=== PATIENT | female | born 1965 | race African-American/Black ===

== ENCOUNTER 2024-02-02 11:30 | Emergency (ER) | payer OTHER ==
[2024-02-02 11:49] VITALS: BP 145/82; PULSE 67; RESP 18; TEMP 98; BMI 36.0
[2024-02-02] MEDS ORDERED: KETOROLAC TROMETHAMINE 30 MG/1 ML VIAL ONE (12:57)
[2024-02-02] MEDS ORDERED: ACETAMINOPHEN 500 MG TABLET (FP) ONE (12:57)
[2024-02-02] MEDS ORDERED: LIDOCAINE 4% PATCH TP ONE (12:57)
[2024-02-02] MEDS: LIDOCAINE 4% PATCH TP ONE (13:01)
[2024-02-02] MEDS: ACETAMINOPHEN 500 MG TABLET (FP) PO ONE (13:02)
[2024-02-02] MEDS: KETOROLAC TROMETHAMINE 30 MG/1 ML VIAL IM ONE (13:02)
[2024-02-02] MEDS ORDERED: LIDOCAINE PATCH REMOVAL MC ONE (22:00)
== END 2024-02-02 13:13 | disposition home or self-care (01) ==
LOC: JERFT 11:30
PROC: 3E0133Z Introduction of Anti-inflammatory into Subcutaneous Tissue, Percutaneous Approach (ICD-10-PCS; principal; 2024-02-02)
DX: M54.2 Cervicalgia (principal); V49.40XA Driver injured in collision with unspecified motor vehicles in traffic accident, initial encounter
CPT/HCPCS: 99284-25